=== PATIENT | male | born 1965 | race Hispanic/Latino ===

== ENCOUNTER 2019-01-07 10:47 | Emergency (ER) | payer MEDICARE ==
[2019-01-07 11:34] LABS: BASOPHILS % (AUTO) 0.2 % (0.0-5.0); EOSINOPHILS % (AUTO) 0.2 % (0.0-8.0); HEMATOCRIT 43.2 % (42-54); LYMPHOCYTES % (AUTO) 8.3 % (21.0-51.0); MEAN CORPUSCULAR HEMOGLOBIN 28.9 pg (27.0-33.0); MEAN CORPUSCULAR HGB CONC 33.9 g/dL (32.0-36.0); MEAN CORPUSCULAR VOLUME 85.3 fL (79-99); MONOCYTES % (AUTO) 8.5 % (3.0-13.0); NEUTROPHILS % (AUTO) 82.8 % (40.0-77.0); PLATELET COUNT (AUTO) 195 K/uL (130-400); RED BLOOD CELL COUNT(AUTO) 5.06 MIL/uL (4.50-6.20); RED CELL DISTRIBUTION WIDTH 13.3 % (11.0-15.5); WHITE BLOOD COUNT (AUTO) 9.9 K/uL (4.8-10.8)
[2019-01-07 11:51] LABS: ALBUMIN 3.4 g/dL (3.5-5.0); BILIRUBIN,TOTAL 0.6 mg/dL (0.2-1.0)
[2019-01-07 12:30] LABS: APPEARANCE,URINE TURBID (CLEAR); BILIRUBIN,URINE NEGATIVE (NEGATIVE); COLOR,URINE YELLOW (YELLOW); GLUCOSE, URINE (UA) NEGATIVE (NEGATIVE); KETONES,URINE 5 mg/dL (NEGATIVE); LEUKOCYTE ESTERASE ,URINE NEGATIVE (NEGATIVE); NITRATE,URINE NEGATIVE (NEGATIVE); OCCULT BLOOD,URINE NEGATIVE (NEGATIVE); PROTEIN,URINE TRACE mg/dL (NEGATIVE)
[2019-01-07 12:37] LABS: AMORPHOUS SEDIMENT,UR Many /LPF (None Seen); BACTERIA,URINE Few /HPF (None Seen); RBC,URINE 0-1 /HPF (0-1); SQUAMOUS EPITHELIAL CELL,UR Rare /HPF (0-2); TRIPLE PHOSPHATE CRYSTAL,UR Few /LPF (None Seen); WBC,URINE 0-1 /HPF (0-1)
== END 2019-01-07 15:02 | disposition home or self-care (01) ==
LOC: EDH 10:47
DX: K59.00 Constipation, unspecified (principal); I10 Essential (primary) hypertension; Z98.890 Other specified postprocedural states
CPT/HCPCS: 36415; 71045; 74176; 80053; 81001; 83690; 84484; 85025; 93005

== ENCOUNTER 2020-04-05 10:57 | Emergency (ER) | payer MEDICAID, MEDICARE ==
[2020-04-05 11:27] LABS: BASOPHILS % (AUTO) 0.4 % (0.0-5.0); EOSINOPHILS % (AUTO) 1.4 % (0.0-8.0); HEMATOCRIT 44.6 % (42-54); LYMPHOCYTES % (AUTO) 22.7 % (21.0-51.0); MEAN CORPUSCULAR HEMOGLOBIN 28.9 pg (27.0-33.0); MEAN CORPUSCULAR HGB CONC 32.7 g/dL (32.0-36.0); MEAN CORPUSCULAR VOLUME 88.1 fL (79-99); MONOCYTES % (AUTO) 6.1 % (3.0-13.0); NEUTROPHILS % (AUTO) 68.6 % (40.0-77.0); PLATELET COUNT (AUTO) 239 K/uL (130-400); RED BLOOD CELL COUNT(AUTO) 5.06 MIL/uL (4.50-6.20); RED CELL DISTRIBUTION WIDTH 12.5 % (11.0-15.5); WHITE BLOOD COUNT (AUTO) 7.2 K/uL (4.8-10.8)
[2020-04-05 12:37] LABS: INR 1.01 (0.85-1.15); PROTHROMBIN TIME 10.8 SEC (9.6-11.6)
[2020-04-05 12:38] LABS: PARTIAL THROMBOPLASTIN TIME 26.6 SEC (26.3-35.5)
== END 2020-04-05 16:47 | disposition home or self-care (01) ==
LOC: EDH 10:57
DX: S00.83XA Contusion of other part of head, initial encounter (principal); M79.18 Myalgia, other site; I10 Essential (primary) hypertension; Z86.73 Personal history of transient ischemic attack (TIA), and cerebral infarction without residual deficits; Z98.890 Other specified postprocedural states; W01.198A Fall on same level from slipping, tripping and stumbling with subsequent striking against other object, initial encounter; Y93.89 Activity, other specified; Y92.89 Other specified places as the place of occurrence of the external cause; Y99.8 Other external cause status
CPT/HCPCS: 36415; 70450; 72125; 82550; 84484; 85025; 85610; 85730; 86850; 86900; 86901; 93005

== ENCOUNTER 2020-09-08 10:29 | Emergency (ER) | payer MEDICAID ==
[~2020-09-08] VITALS: Ht 154.9 cm; Wt 59.0 kg
[2020-09-08 10:46] VITALS: BP 136/97
[2020-09-08 11:41] LABS: APPEARANCE,URINE TURBID (CLEAR); BILIRUBIN,URINE NEGATIVE (NEGATIVE); COLOR,URINE YELLOW (YELLOW); GLUCOSE, URINE (UA) NEGATIVE (NEGATIVE); KETONES,URINE NEGATIVE (NEGATIVE); LEUKOCYTE ESTERASE ,URINE LARGE (NEGATIVE); NITRATE,URINE POSITIVE (NEGATIVE); OCCULT BLOOD,URINE LARGE (NEGATIVE); PH,URINE 7.5 (5.0-8.0); PROTEIN,URINE >=300 mg/dL (NEGATIVE)
[2020-09-08 11:50] LABS: BACTERIA,URINE Moderate /HPF (None Seen); RBC,URINE 51-100 /HPF (0-1); WBC,URINE TNTC /HPF (0-1)
[2020-09-08 11:51] LABS: MUCUS,URINE Few LPF (None Seen); SPERM,URINE Few /HPF (None Seen); SQUAMOUS EPITHELIAL CELL,UR Rare /HPF (0-2)
== END 2020-09-08 14:39 | disposition home or self-care (01) ==
LOC: EDH 10:29
DX: T83.9XXA Unspecified complication of genitourinary prosthetic device, implant and graft, initial encounter (principal); N48.89 Other specified disorders of penis; I10 Essential (primary) hypertension; Z86.73 Personal history of transient ischemic attack (TIA), and cerebral infarction without residual deficits; Y84.6 Urinary catheterization as the cause of abnormal reaction of the patient, or of later complication, without mention of misadventure at the time of the procedure; Y92.89 Other specified places as the place of occurrence of the external cause
CPT/HCPCS: 81001; 87077; 87088; 87186

== ENCOUNTER 2020-10-14 17:24 | Inpatient (IN) | payer MEDICAID, MEDICARE ==
[~2020-10-14] VITALS: Ht 154.9 cm; Wt 54.7 kg
[2020-10-14 18:20] LABS: BASOPHILS % (AUTO) 0.2 % (0.0-5.0); EOSINOPHILS % (AUTO) 1.1 % (0.0-8.0); HEMATOCRIT 42.9 % (42-54); LYMPHOCYTES % (AUTO) 4.7 % (21.0-51.0); MEAN CORPUSCULAR HEMOGLOBIN 25.7 pg (27.0-33.0); MEAN CORPUSCULAR HGB CONC 30.3 g/dL (32.0-36.0); MONOCYTES % (AUTO) 6.4 % (3.0-13.0); PLATELET COUNT (AUTO) 266 K/uL (130-400); RED BLOOD CELL COUNT(AUTO) 5.05 MIL/uL (4.50-6.20); RED CELL DISTRIBUTION WIDTH 15.6 % (11.0-15.5); WHITE BLOOD COUNT (AUTO) 20.6 K/uL (4.8-10.8)
[2020-10-14] MEDS ORDERED: 0.9%NACL 1000ML 1,000 ML IV SCH (18:30)
[2020-10-14] MEDS ORDERED: PIP/TAZ ZOSYN 3.375G 3.375 GM VIAL IVPB ONE (18:30)
[2020-10-14 18:33] LABS: CREATININE 1.4 mg/dL (0.5-1.5); POTASSIUM 3.9 mmol/L (3.5-5.1)
[2020-10-14 18:34] LABS: INR 1.29 (0.85-1.15); PROTHROMBIN TIME 13.7 SEC (9.6-11.6)
[2020-10-14 18:36] LABS: PARTIAL THROMBOPLASTIN TIME 27.2 SEC (26.3-35.5)
[2020-10-14 18:37] LABS: ALBUMIN 2.9 g/dL (3.5-5.0); BILIRUBIN,TOTAL 0.6 mg/dL (0.2-1.0)
[2020-10-14 18:41] LABS: BAND NEUTROPHILS % (MANUAL) 6 % (0-2); LYMPHOCYTES % (MANUAL) 4 % (22-44); MAN.DIFF COMMENT-IMPRESSION MANUAL DIFFERENTIAL; MONOCYTES % (MANUAL) 6 % (2-9); PLATELET MORPHOLOGY COMMENT ADEQUATE; SEGMENTED NEUTROPHILS % 84 % (40-70)
[2020-10-14 19:27] VITALS: BP 127/87
[2020-10-14] MEDS ORDERED: ONDANSETRON 4MG INJ IV PRN (19:30)
[2020-10-14] MEDS ORDERED: HYDROCODONE/ACETAMINOPHEN 5/325 MG TAB PO PRN (19:30)
[2020-10-14] MEDS ORDERED: ACETAMINOPHEN 325 MG TAB ONE (20:01)
[2020-10-14] MEDS ORDERED: 0.9%NACL 1000ML 0 ML IV ONE (20:30)
[2020-10-14 20:51] LABS: APPEARANCE,URINE Turbid (CLEAR); BILIRUBIN,URINE Small (NEGATIVE); COLOR,URINE Dark Yellow (YELLOW); GLUCOSE, URINE (UA) Negative (NEGATIVE); KETONES,URINE Trace mg/dL (NEGATIVE); LEUKOCYTE ESTERASE ,URINE Large (NEGATIVE); NITRATE,URINE Negative (NEGATIVE); OCCULT BLOOD,URINE Negative (NEGATIVE); PROTEIN,URINE POS 2+ mg/dL (NEGATIVE)
[2020-10-14 20:57] LABS: BACTERIA,URINE Many /HPF (None Seen); RBC,URINE None Seen /HPF (0-1); SQUAMOUS EPITHELIAL CELL,UR None Seen /HPF (0-2); WBC,URINE 51-100 /HPF (0-1)
[2020-10-14] MEDS: HEPARIN 5,000 UNIT VIAL SQ SCH (20:57)
[2020-10-14] MEDS: 0.9%NACL 1000ML 1,000 ML IV SCH (20:57)
[2020-10-14 20:58] LABS: TRIPLE PHOSPHATE CRYSTAL,UR Many /LPF (None Seen)
[2020-10-14] MEDS ORDERED: FAMOTIDINE 20MG TAB PO SCH (21:00)
[2020-10-14] MEDS ORDERED: FAMOTIDINE 20MG VIAL IV SCH (21:00)
[2020-10-14] MEDS ORDERED: LABETALOL 20MG SYG IV PRN (21:00)
[2020-10-14] MEDS ORDERED: HYDRALAZINE 20MG/ML VIAL IV PRN (21:00)
[2020-10-14 21:10] VITALS: BP 123/77
[2020-10-14] MEDS ORDERED: 0.9%NACL 50ML 50 ML IV ONE (22:03)
[2020-10-14 22:04] VITALS: BP 122/69
[2020-10-14] MEDS: ZOSYN 3.375GM+NS 50ML 50 ML IV SCH (22:10)
[2020-10-15] VITALS (13 sets, daily range): BP systolic 94–146; BP diastolic 43–98
[2020-10-15] MEDS: 0.9%NACL 1000ML 1,000 ML IV SCH (05:16)
[2020-10-15 07:00] LABS: BASOPHILS % (AUTO) 0.3 % (0.0-5.0); EOSINOPHILS % (AUTO) 0.4 % (0.0-8.0); HEMATOCRIT 39.5 % (42-54); LYMPHOCYTES % (AUTO) 3.9 % (21.0-51.0); MEAN CORPUSCULAR HEMOGLOBIN 25.5 pg (27.0-33.0); MEAN CORPUSCULAR HGB CONC 29.9 g/dL (32.0-36.0); MEAN CORPUSCULAR VOLUME 85.5 fL (79-99); MONOCYTES % (AUTO) 4.2 % (3.0-13.0); PLATELET COUNT (AUTO) 210 K/uL (130-400); RED BLOOD CELL COUNT(AUTO) 4.62 MIL/uL (4.50-6.20); RED CELL DISTRIBUTION WIDTH 15.8 % (11.0-15.5); WHITE BLOOD COUNT (AUTO) 13.5 K/uL (4.8-10.8)
[2020-10-15 07:14] LABS: CREATININE 1.1 mg/dL (0.5-1.5); MAGNESIUM 1.9 mg/dL (1.80-2.40); PHOSPHORUS 2.3 mg/dL (2.5-4.9); POTASSIUM 3.6 mmol/L (3.5-5.1)
[2020-10-15] MEDS ORDERED: ACETAMINOPHEN 325 MG/10.15ML UDCUP ONE (07:34)
[2020-10-15] MEDS ORDERED: 0.9%NACL 50ML 50 ML IV ONE ×2 (07:36→19:39)
[2020-10-15] MEDS: FAMOTIDINE 20MG VIAL IV SCH ×2 (07:55→22:27)
[2020-10-15] MEDS: ZOSYN 3.375GM+NS 50ML 50 ML IV SCH ×3 (07:55→22:27)
[2020-10-15] MEDS: HEPARIN 5,000 UNIT VIAL SQ SCH ×2 (07:55→22:28)
[2020-10-15] MEDS ORDERED: 0.9% NACL 250ML IVPB SCH (11:00)
[2020-10-15] MEDS: DEXTROSE 5%-WATER 1,000 ML IV SCH ×2 (11:00→17:06)
[2020-10-15] MEDS ORDERED: DOXYCYCLINE 100MG IVPB (VIAL) IVPB SCH (11:00)
[2020-10-15] MEDS: FOLIC ACID 5 MG/ML VIAL IV SCH (11:49)
[2020-10-15] MEDS: THIAMINE HCL 100 MG/ML 2ML VIAL IVP SCH (11:49)
[2020-10-15] MEDS: DOXYCYCLINE 100MG+NS 250ML 250 ML IV SCH ×2 (11:49→23:00)
[2020-10-15 16:06] LABS: CREATININE 1.1 mg/dL (0.5-1.5); POTASSIUM 3.4 mmol/L (3.5-5.1)
[2020-10-15] MEDS ORDERED: POTASSIUM CHLORIDE 10% ELIXIR 20 MEQ/15 ML UDCUP PEG ONE (16:30)
[2020-10-16] VITALS (7 sets, daily range): BP systolic 110–150; BP diastolic 72–101
[2020-10-16] MEDS ORDERED: DOXYCYCLINE 100MG+NS 250ML 250 ML IV ONE (00:03)
[2020-10-16] MEDS ORDERED: 0.9% NACL 250ML 250 ML ONE (00:04)
[2020-10-16] MEDS ORDERED: 0.9%NACL 50ML 50 ML IV ONE (05:47)
[2020-10-16] MEDS: ZOSYN 3.375GM+NS 50ML 50 ML IV SCH ×3 (05:54→19:27)
[2020-10-16 06:25] LABS: BASOPHILS % (AUTO) 0.2 % (0.0-5.0); EOSINOPHILS % (AUTO) 0.1 % (0.0-8.0); HEMATOCRIT 35.3 % (42-54); LYMPHOCYTES % (AUTO) 5.8 % (21.0-51.0); MEAN CORPUSCULAR HEMOGLOBIN 25.5 pg (27.0-33.0); MEAN CORPUSCULAR HGB CONC 29.7 g/dL (32.0-36.0); MEAN CORPUSCULAR VOLUME 85.9 fL (79-99); NEUTROPHILS % (AUTO) 89.4 % (40.0-77.0); PLATELET COUNT (AUTO) 205 K/uL (130-400); RED BLOOD CELL COUNT(AUTO) 4.11 MIL/uL (4.50-6.20); RED CELL DISTRIBUTION WIDTH 15.7 % (11.0-15.5); WHITE BLOOD COUNT (AUTO) 14.4 K/uL (4.8-10.8)
[2020-10-16 06:40] LABS: ALBUMIN 1.9 g/dL (3.5-5.0); BILIRUBIN,TOTAL 0.4 mg/dL (0.2-1.0); CREATININE 0.9 mg/dL (0.5-1.5); MAGNESIUM 1.9 mg/dL (1.80-2.40); POTASSIUM 3.7 mmol/L (3.5-5.1)
[2020-10-16] MEDS: HEPARIN 5,000 UNIT VIAL SQ SCH ×2 (09:06→19:29)
[2020-10-16] MEDS: FAMOTIDINE 20MG VIAL IV SCH ×2 (09:07→19:28)
[2020-10-16] MEDS: DOXYCYCLINE 100MG+NS 250ML 250 ML IV SCH (10:41)
[2020-10-16] MEDS: FOLIC ACID 5 MG/ML VIAL IV SCH (10:49)
[2020-10-16] MEDS: THIAMINE HCL 100 MG/ML 2ML VIAL IVP SCH (10:50)
[2020-10-16] MEDS: DEXTROSE 5%-WATER 1,000 ML IV SCH (10:51)
[2020-10-17 04:00] VITALS: BP 145/90
[2020-10-17 04:33] LABS: BASOPHILS % (AUTO) 0.1 % (0.0-5.0); EOSINOPHILS % (AUTO) 0.1 % (0.0-8.0); HEMATOCRIT 35.1 % (42-54); LYMPHOCYTES % (AUTO) 7.6 % (21.0-51.0); MEAN CORPUSCULAR HGB CONC 30.2 g/dL (32.0-36.0); MEAN CORPUSCULAR VOLUME 82.8 fL (79-99); MONOCYTES % (AUTO) 5.4 % (3.0-13.0); NEUTROPHILS % (AUTO) 86.2 % (40.0-77.0); PLATELET COUNT (AUTO) 222 K/uL (130-400); RED BLOOD CELL COUNT(AUTO) 4.24 MIL/uL (4.50-6.20); RED CELL DISTRIBUTION WIDTH 15.4 % (11.0-15.5); WHITE BLOOD COUNT (AUTO) 13.4 K/uL (4.8-10.8)
[2020-10-17] MEDS: ZOSYN 3.375GM+NS 50ML 50 ML IV SCH ×3 (04:33→20:53)
[2020-10-17 04:49] LABS: CREATININE 0.9 mg/dL (0.5-1.5); POTASSIUM 3.3 mmol/L (3.5-5.1)
[2020-10-17] MEDS: FOLIC ACID 5 MG/ML VIAL IV SCH (06:56)
[2020-10-17] MEDS: THIAMINE HCL 100 MG/ML 2ML VIAL IVP SCH (06:56)
[2020-10-17] MEDS: FAMOTIDINE 20MG VIAL IV SCH ×2 (07:32→20:54)
[2020-10-17] MEDS: HEPARIN 5,000 UNIT VIAL SQ SCH ×2 (07:33→20:33)
[2020-10-17] MEDS: ASPIRIN 81 MG EC TAB PEG SCH (07:39)
[2020-10-17 08:00] VITALS: BP 189/103
[2020-10-17] MEDS: LISINOPRIL 10 MG TABLET PO SCH (08:45)
[2020-10-17] MEDS: AMLODIPINE 5 MG TAB PO SCH (08:45)
[2020-10-17 11:41] VITALS: BP 146/95
[2020-10-17 16:16] VITALS: BP 130/81
[2020-10-17] MEDS: 0.9%NACL 1000ML 1,000 ML IV SCH (20:00)
[2020-10-17 20:04] VITALS: BP 129/83
[2020-10-18 00:04] VITALS: BP 116/67
[2020-10-18 04:04] VITALS: BP 116/82
[2020-10-18] MEDS: ZOSYN 3.375GM+NS 50ML 50 ML IV SCH ×3 (05:12→21:31)
[2020-10-18] MEDS: 0.9%NACL 1000ML 1,000 ML IV SCH ×2 (05:12→06:57)
[2020-10-18 06:15] LABS: BASOPHILS % (AUTO) 0.2 % (0.0-5.0); EOSINOPHILS % (AUTO) 0.1 % (0.0-8.0); HEMATOCRIT 36.3 % (42-54); LYMPHOCYTES % (AUTO) 7.3 % (21.0-51.0); MEAN CORPUSCULAR HEMOGLOBIN 25.2 pg (27.0-33.0); MEAN CORPUSCULAR HGB CONC 30.6 g/dL (32.0-36.0); MEAN CORPUSCULAR VOLUME 82.3 fL (79-99); MONOCYTES % (AUTO) 8.5 % (3.0-13.0); NEUTROPHILS % (AUTO) 82.8 % (40.0-77.0); PLATELET COUNT (AUTO) 257 K/uL (130-400); RED BLOOD CELL COUNT(AUTO) 4.41 MIL/uL (4.50-6.20); RED CELL DISTRIBUTION WIDTH 15.5 % (11.0-15.5); WHITE BLOOD COUNT (AUTO) 11.2 K/uL (4.8-10.8)
[2020-10-18 06:34] LABS: CREATININE 0.8 mg/dL (0.5-1.5); POTASSIUM 3.1 mmol/L (3.5-5.1)
[2020-10-18] MEDS: FOLIC ACID 5 MG/ML VIAL IV SCH (06:57)
[2020-10-18] MEDS: THIAMINE HCL 100 MG/ML 2ML VIAL IVP SCH (06:57)
[2020-10-18] MEDS ORDERED: POTASSIUM CHLORIDE 10% ELIXIR 20 MEQ/15 ML UDCUP ONE ×2 (07:01→07:02)
[2020-10-18] MEDS: FAMOTIDINE 20MG VIAL IV SCH ×2 (07:06→21:31)
[2020-10-18] MEDS: AMLODIPINE 5 MG TAB PO SCH (07:06)
[2020-10-18] MEDS: LISINOPRIL 10 MG TABLET PO SCH (07:06)
[2020-10-18] MEDS: ASPIRIN 81 MG EC TAB PEG SCH (07:06)
[2020-10-18] MEDS: HEPARIN 5,000 UNIT VIAL SQ SCH ×2 (07:08→21:33)
[2020-10-18 07:49] VITALS: BP 132/80
[2020-10-18 11:39] VITALS: BP 117/82
[2020-10-18 15:58] VITALS: BP 131/82
[2020-10-18 20:00] VITALS: BP 124/84
[2020-10-19] VITALS (7 sets, daily range): BP systolic 97–138; BP diastolic 68–92
[2020-10-19] MEDS: ZOSYN 3.375GM+NS 50ML 50 ML IV SCH ×3 (05:55→19:49)
[2020-10-19 06:09] LABS: BASOPHILS % (AUTO) 0.2 % (0.0-5.0); EOSINOPHILS % (AUTO) 1.1 % (0.0-8.0); HEMATOCRIT 34.7 % (42-54); LYMPHOCYTES % (AUTO) 8.9 % (21.0-51.0); MEAN CORPUSCULAR HEMOGLOBIN 25.3 pg (27.0-33.0); MEAN CORPUSCULAR HGB CONC 30.5 g/dL (32.0-36.0); MEAN CORPUSCULAR VOLUME 82.8 fL (79-99); MONOCYTES % (AUTO) 9.5 % (3.0-13.0); NEUTROPHILS % (AUTO) 79.5 % (40.0-77.0); PLATELET COUNT (AUTO) 282 K/uL (130-400); RED BLOOD CELL COUNT(AUTO) 4.19 MIL/uL (4.50-6.20); RED CELL DISTRIBUTION WIDTH 15.8 % (11.0-15.5); WHITE BLOOD COUNT (AUTO) 12.2 K/uL (4.8-10.8)
[2020-10-19 06:18] LABS: CREATININE 0.8 mg/dL (0.5-1.5); POTASSIUM 3.5 mmol/L (3.5-5.1)
[2020-10-19] MEDS: 0.9%NACL 1000ML 1,000 ML IV SCH ×2 (06:34→13:00)
[2020-10-19] MEDS ORDERED: AMLO-257 PO (09:49)
[2020-10-19] MEDS ORDERED: LISI20TA24 PO (09:49)
[2020-10-19] MEDS: AMLODIPINE 5 MG TAB PO SCH (10:33)
[2020-10-19] MEDS: ASPIRIN 81 MG EC TAB PEG SCH (10:33)
[2020-10-19] MEDS: LISINOPRIL 10 MG TABLET PO SCH (10:33)
[2020-10-19] MEDS: FAMOTIDINE 20MG VIAL IV SCH ×2 (10:34→19:49)
[2020-10-19] MEDS: HEPARIN 5,000 UNIT VIAL SQ SCH ×2 (10:42→19:50)
[2020-10-19] MEDS: THIAMINE HCL 100 MG/ML 2ML VIAL IVP SCH (11:30)
[2020-10-20] MEDS: 0.9%NACL 1000ML 1,000 ML IV SCH (00:26)
[2020-10-20] MEDS: ZOSYN 3.375GM+NS 50ML 50 ML IV SCH ×3 (04:08→19:32)
[2020-10-20 04:16] VITALS: BP 118/78
[2020-10-20 06:37] LABS: BASOPHILS % (AUTO) 0.3 % (0.0-5.0); EOSINOPHILS % (AUTO) 2.6 % (0.0-8.0); HEMATOCRIT 35.9 % (42-54); LYMPHOCYTES % (AUTO) 10.3 % (21.0-51.0); MEAN CORPUSCULAR HGB CONC 30.4 g/dL (32.0-36.0); MEAN CORPUSCULAR VOLUME 82.3 fL (79-99); NEUTROPHILS % (AUTO) 76.9 % (40.0-77.0); PLATELET COUNT (AUTO) 360 K/uL (130-400); RED BLOOD CELL COUNT(AUTO) 4.36 MIL/uL (4.50-6.20); RED CELL DISTRIBUTION WIDTH 15.8 % (11.0-15.5); WHITE BLOOD COUNT (AUTO) 9.8 K/uL (4.8-10.8)
[2020-10-20 07:46] VITALS: BP 122/82
[2020-10-20] MEDS: FAMOTIDINE 20MG VIAL IV SCH (09:35)
[2020-10-20] MEDS: LISINOPRIL 10 MG TABLET PO SCH (09:35)
[2020-10-20] MEDS: AMLODIPINE 5 MG TAB PO SCH (09:35)
[2020-10-20] MEDS: ASPIRIN 81 MG EC TAB PEG SCH (09:35)
[2020-10-20] MEDS: HEPARIN 5,000 UNIT VIAL SQ SCH ×2 (10:04→19:32)
[2020-10-20 11:06] VITALS: BP 125/84
[2020-10-20] MEDS: THIAMINE HCL 100 MG/ML 2ML VIAL IVP SCH (11:30)
[2020-10-20] MEDS ORDERED: ALBUTEROL 0.083% 2.5 MG/3 ML INH IH PRN (14:00)
[2020-10-20 16:37] VITALS: BP 116/80
[2020-10-20] MEDS ORDERED: IPRATROPIUM/ALBUTEROL SULFATE 3 ML SOLUTION IH SCH (18:00)
[2020-10-20 19:40] VITALS: BP 115/51
[2020-10-21] VITALS (7 sets, daily range): BP systolic 98–135; BP diastolic 66–89
[2020-10-21] MEDS: 0.9%NACL 1000ML 1,000 ML IV SCH (03:50)
[2020-10-21] MEDS: ZOSYN 3.375GM+NS 50ML 50 ML IV SCH ×3 (04:58→21:44)
[2020-10-21] MEDS: THIAMINE HCL 100 MG/ML 2ML VIAL IVP SCH (08:46)
[2020-10-21] MEDS: HEPARIN 5,000 UNIT VIAL SQ SCH ×2 (08:50→21:50)
[2020-10-21] MEDS: ASPIRIN 81 MG EC TAB PEG SCH (08:54)
[2020-10-21] MEDS: AMLODIPINE 5 MG TAB PO SCH (08:55)
[2020-10-21] MEDS: PANTOPRAZOLE 40 MG TAB DR PO SCH (08:55)
[2020-10-21] MEDS: LISINOPRIL 10 MG TABLET PO SCH (08:58)
[2020-10-21] MEDS: LACTATED RINGERS 1000ML 1,000 ML IV SCH ×2 (11:33→18:10)
[2020-10-22] MEDS: LACTATED RINGERS 1000ML 1,000 ML IV SCH ×3 (00:50→12:04)
[2020-10-22 04:00] VITALS: BP 120/83
[2020-10-22] MEDS: ZOSYN 3.375GM+NS 50ML 50 ML IV SCH ×3 (04:58→20:30)
[2020-10-22 08:00] VITALS: BP 117/78
[2020-10-22] MEDS: LISINOPRIL 10 MG TABLET PO SCH (08:53)
[2020-10-22] MEDS: AMLODIPINE 5 MG TAB PO SCH (08:53)
[2020-10-22] MEDS: ASPIRIN 81 MG EC TAB PEG SCH (08:53)
[2020-10-22] MEDS: PANTOPRAZOLE 40 MG TAB DR PO SCH (08:53)
[2020-10-22 09:12] LABS: BASOPHILS % (AUTO) 0.1 % (0.0-5.0); EOSINOPHILS % (AUTO) 1.3 % (0.0-8.0); HEMATOCRIT 32.1 % (42-54); LYMPHOCYTES % (AUTO) 9.6 % (21.0-51.0); MEAN CORPUSCULAR HEMOGLOBIN 25.1 pg (27.0-33.0); MEAN CORPUSCULAR HGB CONC 30.8 g/dL (32.0-36.0); MEAN CORPUSCULAR VOLUME 81.3 fL (79-99); MONOCYTES % (AUTO) 5.9 % (3.0-13.0); NEUTROPHILS % (AUTO) 82.1 % (40.0-77.0); PLATELET COUNT (AUTO) 443 K/uL (130-400); RED BLOOD CELL COUNT(AUTO) 3.95 MIL/uL (4.50-6.20); RED CELL DISTRIBUTION WIDTH 15.7 % (11.0-15.5); WHITE BLOOD COUNT (AUTO) 10.4 K/uL (4.8-10.8)
[2020-10-22 09:24] LABS: CREATININE 0.6 mg/dL (0.5-1.5); POTASSIUM 3.5 mmol/L (3.5-5.1)
[2020-10-22] MEDS: HEPARIN 5,000 UNIT VIAL SQ SCH ×2 (10:18→20:33)
[2020-10-22] MEDS: THIAMINE HCL 100 MG/ML 2ML VIAL IVP SCH (10:20)
[2020-10-22 12:00] VITALS: BP 103/72
[2020-10-22] MEDS: IPRATROPIUM 0.5 MG/2.5 ML INH IH SCH ×3 (13:30→23:27)
[2020-10-22] MEDS: SODIUM CHLORIDE 7% INHALATION 4 ML VIAL.NEB IH SCH ×3 (13:30→23:27)
[2020-10-22] MEDS ORDERED: IPRATROPIUM 0.5 MG/2.5 ML INH IH SCH (14:00)
[2020-10-22 16:00] VITALS: BP 127/81
[2020-10-22 20:04] VITALS: BP 133/79
[2020-10-23 00:04] VITALS: BP 119/84
[2020-10-23 04:04] VITALS: BP 121/69
[2020-10-23] MEDS: ZOSYN 3.375GM+NS 50ML 50 ML IV SCH ×3 (04:51→20:30)
[2020-10-23] MEDS: SODIUM CHLORIDE 7% INHALATION 4 ML VIAL.NEB IH SCH ×5 (06:00→18:36)
[2020-10-23] MEDS: IPRATROPIUM 0.5 MG/2.5 ML INH IH SCH ×3 (06:48→18:36)
[2020-10-23 06:51] LABS: BASOPHILS % (AUTO) 0.1 % (0.0-5.0); EOSINOPHILS % (AUTO) 1.2 % (0.0-8.0); HEMATOCRIT 32.9 % (42-54); LYMPHOCYTES % (AUTO) 9.9 % (21.0-51.0); MEAN CORPUSCULAR HEMOGLOBIN 25.3 pg (27.0-33.0); MEAN CORPUSCULAR HGB CONC 30.7 g/dL (32.0-36.0); MEAN CORPUSCULAR VOLUME 82.3 fL (79-99); MONOCYTES % (AUTO) 5.8 % (3.0-13.0); NEUTROPHILS % (AUTO) 82.2 % (40.0-77.0); PLATELET COUNT (AUTO) 514 K/uL (130-400); RED CELL DISTRIBUTION WIDTH 15.8 % (11.0-15.5); WHITE BLOOD COUNT (AUTO) 11.8 K/uL (4.8-10.8)
[2020-10-23 06:58] LABS: CREATININE 0.6 mg/dL (0.5-1.5); POTASSIUM 3.6 mmol/L (3.5-5.1)
[2020-10-23 08:00] VITALS: BP 116/78
[2020-10-23] MEDS: PANTOPRAZOLE 40 MG TAB DR PO SCH (08:59)
[2020-10-23] MEDS: ASPIRIN 81 MG EC TAB PEG SCH (08:59)
[2020-10-23] MEDS: LISINOPRIL 10 MG TABLET PO SCH (08:59)
[2020-10-23] MEDS: AMLODIPINE 5 MG TAB PO SCH (09:01)
[2020-10-23] MEDS: HEPARIN 5,000 UNIT VIAL SQ SCH ×2 (09:01→20:31)
[2020-10-23] MEDS: THIAMINE HCL 100 MG/ML 2ML VIAL IVP SCH (09:03)
[2020-10-23 11:53] VITALS: BP 123/87
[2020-10-23 16:00] VITALS: BP 100/67
[2020-10-23 20:00] VITALS: BP 122/85
[2020-10-24] VITALS: BP 109/74
[2020-10-24] MEDS: IPRATROPIUM 0.5 MG/2.5 ML INH IH SCH ×3 (00:16→11:10)
[2020-10-24] MEDS: SODIUM CHLORIDE 7% INHALATION 4 ML VIAL.NEB IH SCH ×4 (00:16→11:10)
[2020-10-24 04:00] VITALS: BP 98/64
[2020-10-24] MEDS: ZOSYN 3.375GM+NS 50ML 50 ML IV SCH ×2 (04:36→12:55)
[2020-10-24] MEDS: THIAMINE HCL 100 MG/ML 2ML VIAL IVP SCH (08:08)
[2020-10-24 08:19] VITALS: BP 90/56
[2020-10-24] MEDS: LISINOPRIL 10 MG TABLET PO SCH (09:00)
[2020-10-24] MEDS: AMLODIPINE 5 MG TAB PO SCH (09:00)
[2020-10-24] MEDS: ASPIRIN 81 MG EC TAB PEG SCH (09:27)
[2020-10-24] MEDS: PANTOPRAZOLE 40 MG TAB DR PO SCH (09:27)
[2020-10-24] MEDS: HEPARIN 5,000 UNIT VIAL SQ SCH (09:59)
[2020-10-24] MEDS ORDERED: ROCURONIUM 10MG/1ML SYR 10 MG/ML ML ONE (10:56)
[2020-10-24 11:55] VITALS: BP 112/72
== END 2020-10-24 16:46 | DRG 720 ==
LOC: EDH 17:24 → EDHIP 19:05 → 4BH 10-15 16:09 → 4CH 10-18 17:45 → 4BH 10-19 11:17
PROVIDERS: ADMIT Hospitalist; ATTEND Hospitalist
DX: A41.50 Gram-negative sepsis, unspecified (principal); J96.91 Respiratory failure, unspecified with hypoxia; J69.0 Pneumonitis due to inhalation of food and vomit; G93.41 Metabolic encephalopathy; E43 Unspecified severe protein-calorie malnutrition; J91.8 Pleural effusion in other conditions classified elsewhere; E87.0 Hyperosmolality and hypernatremia; J18.9 Pneumonia, unspecified organism; I10 Essential (primary) hypertension; N39.0 Urinary tract infection, site not specified; F03.90 Unspecified dementia, unspecified severity, without behavioral disturbance, psychotic disturbance, mood disturbance, and anxiety; R65.20 Severe sepsis without septic shock; E87.6 Hypokalemia; E87.1 Hypo-osmolality and hyponatremia; R13.12 Dysphagia, oropharyngeal phase; Z20.822 Contact with and (suspected) exposure to COVID-19; B96.20 Unspecified Escherichia coli [E. coli] as the cause of diseases classified elsewhere; I69.351 Hemiplegia and hemiparesis following cerebral infarction affecting right dominant side; Z68.22 Body mass index [BMI] 22.0-22.9, adult; Z74.01 Bed confinement status; I69.320 Aphasia following cerebral infarction; Z87.440 Personal history of urinary (tract) infections; Z93.1 Gastrostomy status
CPT/HCPCS: 36415; 70450; 71045; 71250; 73590; 73600; 74018; 80048; 80053; 81001; 82550; 82728; 82948; 83605; 83735; 84100; 84145; 84484; 85025; 85378; 85610; 85730; 86140; 87040; 87077; 87088; 87186; 87426; 87635; 87804; 92526; 92610; 93005; 93970; 94640; 94667; 94668; 94760; 97039; A4606; G0378; J0360; J1644; J2543; J3411; J3490; J7030; J7050; J7070; J7120